=== PATIENT | male | born 1995 | race Caucasian/White ===

== ENCOUNTER 2016-05-25 03:18 | Emergency (ER) | payer OTHER ==
[~2016-05-25] VITALS: Ht 172.7 cm; Wt 75.0 kg
[2016-05-25 03:21] VITALS: TEMP 97.4
[2016-05-25] MEDS ORDERED: ATIVAN 1MG T1 MG/TAB PO (04:30)
[2016-05-25 04:36] VITALS: BP 138/66; PULSE 74
== END 2016-05-25 04:36 | disposition home or self-care (01) ==
LOC: COL.ER 03:18
DX: F41.9 Anxiety disorder, unspecified (principal)